=== PATIENT | male | born 1955 | race Caucasian/White ===

== ENCOUNTER → 2017-11-24 | Day surgery (SDC) | payer BC ==
[~2017-11-24] MED LIST: ANTIBIOTIC; CEFTRIAXONE SOD 1 GM VIAL ONE; FLOMAX0.4 MG PO; LOSARTAN POTASS25 MG
[2017-11-24 07:15] LABS: BILIRUBIN,URINE NEGATIVE (NEGATIVE); CLARITY,URINE CLEAR (CLEAR); COLOR,URINE YELLOW (YELLOW); KETONES,URINE NEGATIVE (NEGATIVE); LEUKOCYTE ESTERASE ,URINE TRACE (NEGATIVE); NITRITE,URINE NEGATIVE (NEGATIVE); PROTEIN,URINE DIPSTICK NEGATIVE (NEGATIVE); URINE UROBILINOGEN 0.2 mg/dL (0.2 - 1)
== END | disposition home or self-care (01) ==
LOC: RAD 11-20 05:00 → OR 05:00 → EDSTATUS 07:30
PROVIDERS: ATTEND Urology
DX: R31.29 Other microscopic hematuria (principal); Z53.09 Procedure and treatment not carried out because of other contraindication; Z01.810 Encounter for preprocedural cardiovascular examination
CPT/HCPCS: 81003; 93005; J0696

== ENCOUNTER → 2017-12-04 | Day surgery (SDC) | payer BC ==
[~2017-12-04] MED LIST changes: +DEXAMETHASONE SOD PHOS INJ 4 MG/ML VIAL ONE; +FENTANYL CITRATE/PF 100MCG/2 ML INJ ONE; +HYDROMORPHONE 2MG/ML 2 MG/ML ML ONE; +IOPAMIDOL 610MG/1ML 300 MG/ML VIAL IV ONE; +LIDOCAINE HCL 2% LOCAL INJ 5 ML SDV VIAL INJ ONE; +MIDAZOLAM HCL 2 MG/2 ML VIAL ONE; +ONDANSETRON HCL INJ 2 MG/ML VIAL ONE; +PROPOFOL IV EMULSION 10 MG/ML 20 ML VIAL ONE; +SEVOFLURANE INHAL SOLN 250 ML PEN BTL ONE
[2017-12-04 06:22] LABS: CLARITY,URINE CLEAR (CLEAR); COLOR,URINE YELLOW (YELLOW); LEUKOCYTE ESTERASE ,URINE NEGATIVE (NEGATIVE)
[2017-12-04 06:23] LABS: BILIRUBIN,URINE NEGATIVE (NEGATIVE); KETONES,URINE NEGATIVE (NEGATIVE); NITRITE,URINE NEGATIVE (NEGATIVE); PROTEIN,URINE DIPSTICK NEGATIVE (NEGATIVE); URINE UROBILINOGEN 0.2 mg/dL (0.2 - 1)
--- NOTE | 2017-12-04 07:59 | Operative Report ---
DATE OF PROCEDURE: December 04, 2017 PREOPERATIVE DIAGNOSES 1. Bladder neck contracture. 2. Residual BPH. POSTOPERATIVE DIAGNOSES 1. Bladder neck contracture. 2. Residual BPH. 3. Bladder stone. PROCEDURES 1. Cystourethroscopy with transurethral incision of bladder neck contracture (entirely separate procedure for bladder neck contracture). 2. Cystolitholapaxy (2.8-cm stone). ANESTHESIA: General. ESTIMATED BLOOD LOSS: Minimal. COMPLICATIONS: None. INDICATIONS: Mr. Richards is a very pleasant 62-year-old male who has undergone a previous PVP by prior urologist. Has had recurrent bladder contractures, and now presents with decreased force of stream, follow up nephroscopy and a very small bladder neck contracture. He and I had a long discussion about alternatives, risks and benefits including doing nothing, transurethral resection, PVP, etc. He voiced understanding of the options, alternatives, risks, and benefits and elected to proceed. PROCEDURE IN DETAIL: After informed consent was obtained, the patient was taken to the operative site and placed supine on the operating table and underwent general anesthesia by the anesthesia service. The patient was placed in the dorsal lithotomy position and sterilely prepped and draped in the standard fashion for cystoscopy. The PVP sheath was inserted per urethra. Due to the extremely fibrotic nature of the entire prostatic capsule, I could not advance the fiber into the orifice. At this time, with inability to do, I removed the PVP resectoscope sheath and inserted a 22.5-Slovenian sheath utilizing a Bugbee electrocautery. The bladder neck was incised and cut at 100 directly in the 6 o'clock position. This allowed enough play to get the scope inside the bladder. Upon entering the bladder, there was a very large approximately 2.8-cm stone. Utilizing the 550 micron laser fiber, the stone was obliterated into the dust. Fragments were passed into the screen. At this time, with no other stones or tumors seen, the scope was then withdrawn. The Bugbee was again utilized to cut from the 5 and 7 o'clock positions on the floor to allow the scope to easily pass in and out. At this time, the scope was removed. A 20-Slovenian Coude catheter was placed with clear efflux. It was irrigated to and fro. The balloon was inflated with no trauma to the bladder neck. The patient was awakened from anesthesia, and transported to the recovery room in excellent condition with no untoward effects noted. Job#: [id number]
[2017-12-04 11:00] VITALS: BP 124/88
== END | disposition home or self-care (01) ==
LOC: OR 05:28
PROVIDERS: ATTEND Urology
DX: N32.0 Bladder-neck obstruction (principal); N21.0 Calculus in bladder; N40.0 Benign prostatic hyperplasia without lower urinary tract symptoms; I10 Essential (primary) hypertension; Z98.890 Other specified postprocedural states
CPT/HCPCS: 52318; 52640; 81003; J0696; J1100; J1170; J2001; J2250; J2405